=== PATIENT | male | born 1980 | race Caucasian/White ===

== ENCOUNTER 2019-05-04 17:41 | Emergency (ER) | payer OTHER ==
[~2019-05-04] VITALS: Ht 180.3 cm; Wt 77.1 kg
[2019-05-04] MEDS ORDERED: TRAMADOL 50 MG50 MG PO (18:31)
[2019-05-04 19:27] VITALS: BP 147/77
== END 2019-05-04 19:29 | disposition home or self-care (01) ==
LOC: M.ERS 17:41
DX: S62.396A Other fracture of fifth metacarpal bone, right hand, initial encounter for closed fracture (principal); W22.8XXA Striking against or struck by other objects, initial encounter; Y93.89 Activity, other specified; Y92.89 Other specified places as the place of occurrence of the external cause; Y99.8 Other external cause status